=== PATIENT | male | born 1955 | race Caucasian/White ===

== ENCOUNTER 2017-06-07 09:12 | Outpatient (CLI) | payer BC ==
[2017-06-07 09:55] LABS: Hemoglobin 14.5 g/dL (14.0-18.0); Mean Corpuscular HGB CONC 33.9 g/dL (32.0-36.0); Mean Corpuscular Hemoglobin 34.9 pg (27.0-31.0); Mean Platelet Volume 7.9 fL (7.4-10.4); Platelet Count 172 thou/uL (130-400); RBC Distribution Width 11.9 % (11.5-14.5); Red Blood Cell (RBC) Count 4.16 mill/uL (4.70-6.10)
[2017-06-07 10:00] LABS: INR-International Normal Ratio 1.1; PTT 30.1 SEC (22.9-36.1); Prothrombin Time 13.8 SEC (12.0-14.7)
[2017-06-07 10:13] LABS: Anion Gap 10 mmol/L (10-20); BUN (Urea Nitrogen) 14 mg/dL (8.4-25.7); Calc. Creatinine Clearance 0 mL/min (70-130); Calcium 9.7 mg/dL (7.8-10.44); Carbon Dioxide 27 mmol/L (23-31); Chloride 105 mmol/L (98-107); Estimated GFR-MDRD 75; Glucose 116 mg/dL (80-115); Potassium 4.3 mmol/L (3.5-5.1); Sodium 138 mmol/L (136-145)
== END 2017-06-07 09:13 | disposition home or self-care (01) ==
LOC: LABBT 09:12
PROVIDERS: ATTEND Urology
DX: Z01.812 Encounter for preprocedural laboratory examination (principal); C67.9 Malignant neoplasm of bladder, unspecified
CPT/HCPCS: 80048; 85027; 85610; 85730

== ENCOUNTER 2017-06-10 06:10 | Day surgery (SDC) | payer BC ==
[2017-06-07 09:29] VITALS: BMI 20.3
[2017-06-10] MEDS ORDERED: Fentanyl 100 MCG/2 ML VIAL ONE ×3 (06:26→09:10)
[2017-06-10] MEDS ORDERED: HYDROmorphone 0.5 MG/0.5 ML SYRINGE ONE (06:26)
[2017-06-10] MEDS ORDERED: CEFAZOLIN/Water 2 GM/20 ML SYRINGE ONE (06:39)
[2017-06-10] MEDS ORDERED: Iothalamate Meglumine 60% 50 ML VIAL FS ONE (06:50)
[2017-06-10] MEDS ORDERED: Midazolam HCl 2 mg/2 ml Vial ONE (07:52)
--- NOTE | 2017-06-10 08:34 | RAD ---
EIGHT FLUOROSCOPIC IMAGES FROM A RETROGRADE IVP: INDICATION: IVP retrograde exam. FINDINGS: Submitted images demonstrate selection of the distal ureters from the bladder with a cystoscopy scop e device. No intraluminal filling defects are evident. Minimal postvoid residual is seen on the fin al submitted image. Visualized bowel gas pattern is nonobstructive. No acute osseous abnormality is evident. IMPRESSION: No visible filling defect seen on the retrograde intravenous pyelogram of both renal collecting syste ms. POS: JUANA
--- NOTE | 2017-06-10 10:30 | OP ---
DATE OF PROCEDURE: 06/10/2017 PREOPERATIVE DIAGNOSIS: Recurrent bladder tumor. POSTOPERATIVE DIAGNOSIS: Recurrent bladder tumor. PROCEDURE PERFORMED: Cysto, TURBT, bilateral retrograde. SURGEON: Dr. Chance Mancera ANESTHETIC: General. ESTIMATED BLOOD LOSS: Minimal. DRAINS PLACED: An 18-Syrian Giraldo catheter with 20 mL in the balloon. FINDINGS: The patient had tumor site left wall, right wall and posterior just to the right of midlin e that were calcified. These had been seen in our office. He had 2 tiny little papillary tumors on the posterior wall that were just cauterized. OPERATIVE TECHNIQUE: After obtaining written and verbal consent from the patient, he was taken to [facility] operating suite. He was placed in the supine position on the treatment table. PlexiPulses were pl aced on his lower extremities and turned on. He was given a general anesthetic and an oral intubatio n. He was placed in the dorsal lithotomy position and sterilely prepped and draped. Cystoscopy was performed with a 22-Syrian sheath. This was well lubricated and passed under direct vision through t he male urethra and into the urinary bladder with aid of 30-degree lens and video camera and monitor. The bladder was filled and emptied a number of times and examined with both a 30 and 70 degree lens . At this point, a 5 Syrian Pollack catheter was flushed with contrast and brought in. A fuel system maintenance supervisor KUB was taken with the fluoroscopy unit. The Pollack was placed in the left ureteral orifice about a cm up and then contrast was slowly injected in a retrograde manner filling out the ureter and upper dalila ecting system. Drainage films were obtained. The right side was done in a similar manner, there was no persistent abnormality noted. At this point, the instruments were removed and a 24 Syrian resect oscope sheath with visual obturator was passed with a 30 degree lens through the male urethra into [facility] bladder. An Segetis resectoscope with a gyrus bladder tumor loop and a gyrus generator 30 degree lens were used. We initially knocked off all of the calcifications from these prior sites and ellike d these out and then resected the left, the right and the posterior wall, right at the midline sendin g them off separately. We cauterized the tiny little tumors that were noted. At this point, the pat ient had a Giraldo catheter sterilely placed to drain the bladder. The urine was clear was taken out o f dorsal lithotomy position, awakened, extubated, and taken by stretcher to the recovery room.
[2017-06-10] MEDS ORDERED: HYDROcodone/Acetaminophen 5/325 mg Tablet ONE (11:06)
[2017-06-10] MEDS ORDERED: PROPOFOL 200 MG/20 ML VIAL ONE (16:56)
[2017-06-10] MEDS ORDERED: ePHEDrine/0.9% NaCl/PF SYRINGE 50 mg/10 ml ONE (16:56)
[2017-06-10] MEDS ORDERED: Dexamethasone 20 MG/5 ML VIAL ONE (16:56)
[2017-06-10] MEDS ORDERED: Metoclopramide HCl 10 MG/2 ML VIAL ONE (16:56)
[2017-06-10] MEDS ORDERED: Glycopyrrolate 0.2 MG/ML 5 ML SYRINGE ONE (16:56)
[2017-06-10] MEDS ORDERED: Lidocaine 1% PF 5 ML VIAL ONE (16:56)
[2017-06-10] MEDS ORDERED: Succinylcholine Chloride 20 MG/ML 10 ml SYRINGE FS ONE (16:56)
[2017-06-10] MEDS ORDERED: Ondansetron HCl/PF 4 MG/2 ML Vial ONE (16:56)
== END 2017-06-10 11:30 | disposition home or self-care (01) ==
LOC: SDC 06:10
PROVIDERS: ATTEND Urology
PROC: 0T5B8ZZ Destruction of Bladder, Via Natural or Artificial Opening Endoscopic (ICD-10-PCS; principal; 2017-06-10)
DX: N32.89 Other specified disorders of bladder (principal); Z98.890 Other specified postprocedural states
CPT/HCPCS: 74420; 88307; 96374; C1758; J0131; J1100; J1170; J2001; J2250; J2405; J2704; J2765; J3010; Q9961

== ENCOUNTER 2019-12-01 20:50 | Emergency (ER) | payer BC ==
[2019-12-01] MEDS ORDERED: Morphine 4 MG/ML VIAL ONE (21:18)
[2019-12-01 21:38] LABS: #Eosinphils 0.1 thou/uL (0.0-0.7); #Lymphocytes 1.6 thou/uL (1.20-3.40); #Monocytes 0.5 thou/uL (0.11-0.59); #Neutrophils 2.7 thou/uL (1.40-6.50); %Basophils 0.9 % (0.0-1.0); %Eosinophils 2.9 % (0.0-10.0); %Lymphocytes 32.9 % (21.0-51.0); %Neutrophils 53.3 % (42.0-75.0); Mean Corpuscular HGB CONC 33.4 g/dL (32.0-36.0); Mean Corpuscular Hemoglobin 32.9 pg (27.0-31.0); Mean Corpuscular Volume 98.7 fL (78.0-98.0); Mean Platelet Volume 9.1 fL (7.4-10.4); Platelet Count 147 thou/uL (130-400); RBC Distribution Width 12.1 % (11.5-14.5); Red Blood Cell (RBC) Count 4.55 mill/uL (4.70-6.10)
[2019-12-01 21:58] LABS: ALT (SGPT) 17 U/L (8-55); AST (SGOT) 20 U/L (5-34); Albumin 4.6 g/dL (3.4-4.8); Alkaline Phosphatase 67 U/L (40-110); Anion Gap 9 mmol/L (10-20); BUN (Urea Nitrogen) 16 mg/dL (8.4-25.7); Bilirubin, Total 0.6 mg/dL (0.2-1.2); Calc. Creatinine Clearance 0 mL/min (70-130); Calcium 9.9 mg/dL (7.8-10.44); Carbon Dioxide 32 mmol/L (23-31); Chloride 102 mmol/L (98-107); Estimated GFR-MDRD 75; Globulin 2.6 g/dL (2.4-3.5); Glucose 110 mg/dL (80-115); Lipase 25 U/L (8-78); Potassium 3.8 mmol/L (3.5-5.1); Protein, Total 7.2 g/dL (5.8-8.1); Sodium 139 mmol/L (136-145)
--- NOTE | 2019-12-01 22:07 | ULT ---
US Gallbladder RUQ History: Abdominal pain Comparison: Reference is made to CT exam October 2019 Findings: Pancreas is not well seen. Visualized portion of the aorta and IVC are unremarkable. Hepatic echotexture is slightly increased. No hepatic mass. Portal vein is patent. Gallbladder is normal. No pericholecystic fluid. Right kidney is normal. Small cyst inferior pole rig ht kidney. Common bile duct is not dilated. No intrahepatic or extra hepatic biliary dilatation. Impression: Unremarkable exam. No cholelithiasis or cholecystitis.
--- NOTE | 2019-12-01 22:34 | CT ---
CT Abdomen Pelvis W Con History: Abdominal pain Comparison: CT abdomen and pelvis October 2019 Findings: The lung bases are clear. No pericardial effusion. Gallbladder is unremarkable. Hypodensity interpolar left kidney measures 90 Hounsfield units, previously 60 Hounsfield units may r eflect hemorrhage within a cyst. Multiple small bilateral renal hypodensities. Suture is seen along the cecal apex. No dilated loops of large or small bowel. No retroperitoneal periaortic adenopathy. Moderate diverticular disease of the sigmoid colon without active current inflammation. There is unremarkable. No intrahepatic or extra hepatic biliary dilatation. Celiac trunk and superior mesenteric arteries are patent. Impression: 1. Mild increased density interpolar hypodensity of the left kidney likely reflects hemorrhage within a cyst. 2. New sutures along the cecal apex without complication.
[2019-12-01 23:11] LABS: Bilirubin Negative (Negative); Blood, Urine Negative (Negative); Clarity Clear (Clear); Glucose, Urine (Dipstick) Normal (Negative); Leukocyte Negative Leu/uL (Negative); Nitrite Negative (Negative); Protein, Urine (Dipstick) Negative (Neg-Trace); Urobilinogen Normal mg/dL (Less than 2)
== END 2019-12-01 23:00 | disposition home or self-care (01) ==
LOC: ERS 20:50
DX: K57.30 Diverticulosis of large intestine without perforation or abscess without bleeding (principal); I10 Essential (primary) hypertension; F41.9 Anxiety disorder, unspecified; Z79.899 Other long term (current) drug therapy
CPT/HCPCS: 74177; 76705; 80053; 81003; 83690; 85025; 96374; J2270

== ENCOUNTER 2020-04-22 13:12 | Outpatient (CLI) | payer BC ==
--- NOTE | 2020-04-25 08:39 | RAD ---
MODIFIED BARIUM SWALLOW IN PRESENCE OF SPEECH THERAPIST: HISTORY: Dysphagia, feeding difficulties FINDINGS: No laryngeal penetration or aspiration is seen. No persistent pooling of contrast is seen in the valleculae or piriform sinuses. Mild residue is pres ent. Please see recommendations of the speech therapist for further management.
== END 2020-04-22 13:13 | disposition home or self-care (01) ==
PROVIDERS: ATTEND Physician Assistant Medical
DX: R13.12 Dysphagia, oropharyngeal phase (principal)
CPT/HCPCS: 74230

== ENCOUNTER 2021-12-17 08:48 | Inpatient (IN) | payer BC, MEDICARE ==
[2021-12-17 09:28] LABS: #Basophils 0.1 thou/uL (0.0-0.2); #Eosinphils 0.2 thou/uL (0.0-0.7); #Lymphocytes 2.2 thou/uL (1.20-3.40); #Monocytes 0.4 thou/uL (0.11-0.59); %Basophils 1.1 % (0.0-1.0); %Eosinophils 3.5 % (0.0-10.0); %Lymphocytes 37.3 % (21.0-51.0); %Monocytes 6.4 % (0.0-10.0); %Neutrophils 51.8 % (42.0-75.0); Hemoglobin 14.5 g/dL (14.0-18.0); Mean Corpuscular HGB CONC 32.5 g/dL (32.0-36.0); Mean Corpuscular Hemoglobin 33.8 pg (27.0-31.0); Mean Platelet Volume 8.7 fL (7.4-10.4); Platelet Count 151 thou/uL (130-400); RBC Distribution Width 12.1 % (11.5-14.5); White Blood Cell (WBC) Count 5.8 thou/uL (4.8-10.8)
[2021-12-17] MEDS ORDERED: Lorazepam (BATCHED) 2 MG/ML SYR ONE (09:28)
[2021-12-17 09:48] LABS: ALT (SGPT) 19 U/L (8-55); AST (SGOT) 22 U/L (5-34); Albumin 4.2 g/dL (3.4-4.8); Alkaline Phosphatase 78 U/L (40-110); Anion Gap 20 mmol/L (10-20); BUN (Urea Nitrogen) 14 mg/dL (8.4-25.7); Bilirubin, Total 0.9 mg/dL (0.2-1.2); Calc. Creatinine Clearance 0 mL/min (70-130); Calcium 9.6 mg/dL (7.8-10.44); Carbon Dioxide 21 mmol/L (23-31); Chloride 102 mmol/L (98-107); Estimated GFR 92; Globulin 2.8 g/dL (2.4-3.5); Glucose 186 mg/dL (80-115); Potassium 3.8 mmol/L (3.5-5.1); Sodium 139 mmol/L (136-145)
[2021-12-17] MEDS ORDERED: levETIRAcetam 500 MG/5 ML VIAL ONE (10:55)
[2021-12-17 11:39] LABS: Bilirubin Negative (Negative); Blood, Urine Negative (Negative); Clarity Clear (Clear); Glucose, Urine (Dipstick) Normal (Negative); Ketone, Urine Negative (Negative); Leukocyte Negative Leu/uL (Negative); Nitrite Negative (Negative); Protein, Urine (Dipstick) Negative (Neg-Trace); Specific Gravity, Urine 1.016 (1.002-1.036); Urobilinogen Normal mg/dL (Less than 2)
[2021-12-17 13:37] LABS: Lactic Acid 1.3 mmol/L (0.5-2.2)
[2021-12-17] MEDS ORDERED: Ondansetron PF 4 MG/2 ML Vial IVP PRN (13:57)
[2021-12-17] MEDS ORDERED: Ondansetron ODT 4 MG TAB PO PRN (13:57)
[2021-12-17] MEDS ORDERED: hydrALAZINE 20 MG/ML VIAL SLOW IVP PRN (13:57)
[2021-12-17] MEDS ORDERED: Acetaminophen 650 MG Suppository PR PRN (13:57)
[2021-12-17 16:48] VITALS: BMI 19.4
[2021-12-17] MEDS: Atorvastatin Calcium 40 MG TAB PO SCH (20:58)
[2021-12-17] MEDS ORDERED: levETIRAcetam in NS 500 MG in Premix Bag 1 BAG IVPB SCH (21:00)
[2021-12-17] MEDS: levETIRAcetam 500 MG/5 ML VIAL SLOW IVP SCH (21:07)
[2021-12-18 05:34] LABS: #Lymphocytes 0.9 thou/uL (1.20-3.40); #Monocytes 0.7 thou/uL (0.11-0.59); #Neutrophils 4.5 thou/uL (1.40-6.50); %Basophils 0.4 % (0.0-1.0); %Eosinophils 0.7 % (0.0-10.0); %Lymphocytes 14.3 % (21.0-51.0); %Monocytes 11.5 % (0.0-10.0); %Neutrophils 73.1 % (42.0-75.0); Hemoglobin 12.2 g/dL (14.0-18.0); Mean Corpuscular HGB CONC 32.6 g/dL (32.0-36.0); Mean Corpuscular Hemoglobin 33.5 pg (27.0-31.0); Mean Platelet Volume 8.8 fL (7.4-10.4); Platelet Count 144 thou/uL (130-400); RBC Distribution Width 12.1 % (11.5-14.5); Red Blood Cell (RBC) Count 3.66 mill/uL (4.70-6.10); White Blood Cell (WBC) Count 6.1 thou/uL (4.8-10.8)
[2021-12-18 05:40] LABS: Anion Gap 12 mmol/L (10-20); BUN (Urea Nitrogen) 13 mg/dL (8.4-25.7); Calc. Creatinine Clearance 89 mL/min (70-130); Calcium 8.8 mg/dL (7.8-10.44); Carbon Dioxide 25 mmol/L (23-31); Cardiac Risk 2.6 (Less than 4.5); Chloride 108 mmol/L (98-107); Cholesterol 132 mg/dl (< 200 Desired); Estimated GFR 99; Glucose 91 mg/dL (80-115); HDL Cholesterol 51 mg/dL (>60 Neg Risk); LDL Cholesterol, Calculated 63 mg/dL; Potassium 3.6 mmol/L (3.5-5.1); Sodium 141 mmol/L (136-145); Triglycerides 88 mg/dL (Less than 150)
[2021-12-18] MEDS: Aspirin 81 mg Enteric Coated Tablet PO SCH ×2 (09:01→09:16)
[2021-12-18] MEDS: levETIRAcetam 500 MG/5 ML VIAL SLOW IVP SCH ×2 (09:01→23:20)
[2021-12-18] MEDS: Acetaminophen 325 MG TAB PO PRN (16:12)
[2021-12-18] MEDS ORDERED: Melatonin 3 MG TAB PO PRN (16:15)
[2021-12-18] MEDS: Lorazepam 0.5 MG TAB PO SCH (23:20)
[2021-12-18] MEDS: Atorvastatin Calcium 40 MG TAB PO SCH (23:20)
[2021-12-18] MEDS: risperiDONE 1 MG TAB PO SCH (23:21)
[2021-12-18] MEDS: Tamsulosin HCl 0.4 MG CAP PO SCH (23:32)
[2021-12-18] MEDS: Mirtazapine 30 MG Soltab PO SCH (23:32)
[2021-12-19 05:04] LABS: #Eosinphils 0.1 thou/uL (0.0-0.7); #Lymphocytes 0.9 thou/uL (1.20-3.40); #Monocytes 0.7 thou/uL (0.11-0.59); #Neutrophils 3.4 thou/uL (1.40-6.50); %Basophils 0.3 % (0.0-1.0); %Eosinophils 2.5 % (0.0-10.0); %Lymphocytes 17.7 % (21.0-51.0); %Monocytes 13.3 % (0.0-10.0); %Neutrophils 66.2 % (42.0-75.0); Hemoglobin 12.9 g/dL (14.0-18.0); Mean Corpuscular HGB CONC 33.1 g/dL (32.0-36.0); Mean Corpuscular Hemoglobin 33.4 pg (27.0-31.0); Mean Platelet Volume 8.8 fL (7.4-10.4); Platelet Count 124 thou/uL (130-400); RBC Distribution Width 11.8 % (11.5-14.5); Red Blood Cell (RBC) Count 3.86 mill/uL (4.70-6.10); White Blood Cell (WBC) Count 5.1 thou/uL (4.8-10.8)
[2021-12-19 05:24] LABS: Anion Gap 14 mmol/L (10-20); BUN (Urea Nitrogen) 11 mg/dL (8.4-25.7); Calc. Creatinine Clearance 88 mL/min (70-130); Carbon Dioxide 22 mmol/L (23-31); Chloride 105 mmol/L (98-107); Estimated GFR 99; Glucose 96 mg/dL (80-115); Potassium 3.3 mmol/L (3.5-5.1); Sodium 138 mmol/L (136-145)
[2021-12-19] MEDS: Aspirin Chewable 81 MG TAB PO SCH (10:06)
[2021-12-19] MEDS: Meloxicam 7.5 MG TAB PO SCH (10:07)
[2021-12-19] MEDS: risperiDONE 1 MG TAB PO SCH ×2 (10:08→20:28)
[2021-12-19] MEDS: Cholecalciferol 1,000 UNITS (25 MCG) TAB PO SCH (10:08)
[2021-12-19] MEDS: levETIRAcetam 500 MG/5 ML VIAL SLOW IVP SCH ×2 (10:10→20:28)
[2021-12-19] MEDS ORDERED: Potassium Bicarbonate/Cit Ac 20 MEQ TAB PO SCH (12:45)
[2021-12-19] MEDS: Potassium Bicarbonate/Cit Ac 20 MEQ TAB PO SCH (18:17)
[2021-12-19] MEDS: Acetaminophen 325 MG TAB PO PRN (18:54)
[2021-12-19] MEDS: Atorvastatin Calcium 40 MG TAB PO SCH (20:28)
[2021-12-19] MEDS: Lorazepam 0.5 MG TAB PO SCH (20:28)
[2021-12-19] MEDS: Tamsulosin HCl 0.4 MG CAP PO SCH (20:29)
[2021-12-19] MEDS: Mirtazapine 30 MG Soltab PO SCH (20:30)
[2021-12-20 06:48] LABS: Anion Gap 13 mmol/L (10-20); BUN (Urea Nitrogen) 8 mg/dL (8.4-25.7); Calc. Creatinine Clearance 94 mL/min (70-130); Calcium 9.5 mg/dL (7.8-10.44); Carbon Dioxide 26 mmol/L (23-31); Chloride 105 mmol/L (98-107); Estimated GFR 101; Glucose 89 mg/dL (80-115); Sodium 140 mmol/L (136-145)
[2021-12-20] MEDS: Aspirin Chewable 81 MG TAB PO SCH (10:14)
[2021-12-20] MEDS: Potassium Bicarbonate/Cit Ac 20 MEQ TAB PO SCH (10:14)
[2021-12-20] MEDS: Cholecalciferol 1,000 UNITS (25 MCG) TAB PO SCH (10:14)
[2021-12-20] MEDS: levETIRAcetam 500 MG/5 ML VIAL SLOW IVP SCH (10:15)
[2021-12-20] MEDS: Meloxicam 7.5 MG TAB PO SCH (10:15)
[2021-12-20] MEDS: risperiDONE 1 MG TAB PO SCH (10:17)
[2021-12-20] MEDS ORDERED: Lorazepam (BATCHED) 2 MG/ML SYR SLOW IVP PRN (10:53)
[2021-12-20 12:06] VITALS: BP 113/60; TEMP 97.7
== END 2021-12-20 15:40 | disposition home or self-care (01) | DRG 101 ==
LOC: ERS 08:48 → NEURO 11:26 → INTOOBSV 11:26 → NEURO 12-18 16:04 → OBSVTOIN 12-18 16:56
PROVIDERS: ADMIT Family Medicine; ATTEND Family Medicine
DX: R56.9 Unspecified convulsions (principal); E87.2 Acidosis; Z20.822 Contact with and (suspected) exposure to COVID-19; I10 Essential (primary) hypertension; F02.80 Dementia in other diseases classified elsewhere, unspecified severity, without behavioral disturbance, psychotic disturbance, mood disturbance, and anxiety; E87.6 Hypokalemia; G30.0 Alzheimer's disease with early onset; R13.12 Dysphagia, oropharyngeal phase; Z85.51 Personal history of malignant neoplasm of bladder; Z79.899 Other long term (current) drug therapy; Z90.49 Acquired absence of other specified parts of digestive tract; Z98.890 Other specified postprocedural states
CPT/HCPCS: 36415; 70450; 80048; 80053; 80061; 81003; 83605; 84146; 85025; 93005; 95712; 95819; 95957; 96365; 96375; 96376; G0378; J1953; J2060; U0003; U0005